=== PATIENT | female | born 1985 | race Two or more races ===

== ENCOUNTER 2017-01-04 20:50 | Observation (INO) | payer MEDICAID ==
[~2017-01-04] VITALS: Ht 157.5 cm; Wt 49.9 kg
[~2017-01-04 20:50] MED LIST: NORPTMEDS CO
[2017-01-04 21:39] LABS: Urine Bilirubin Negative (Negative); Urine Blood Negative /uL (Negative); Urine Color Colorless (Yellow); Urine Glucose Normal (Normal); Urine Ketone Negative (Negative); Urine Nitrite Negative (Negative); Urine RBC <1 /hpf (0 - 4); Urine Urobilinogen Normal (Negative); Urine pH 5.5 (5.0-8.0)
[2017-01-04 21:52] LABS: Basophils # (auto) 0 uL; Basophils % (auto) 0.6 % (0.0-2.0); Eosinophils # (auto) 0.1 uL; Hematocrit 37.9 % (36.0-46.0); Lymphocytes % (auto) 34.1 % (10.0-50.0); Mean Corpuscular Hemoglobin 31.4 pg (28.0-32.0); Mean Corpuscular Hgb Conc. 34.3 g/dL (32.0-36.0); Mean Corpuscular Volume 91.4 fL (80.0-100.0); Mean Platelet Volume 9.2 fL (7.4-10.4); Monocytes # (auto) 0.4 uL; Monocytes % (auto) 6.2 % (0.0-12.0); Neutrophils # (auto) 3.4 uL; Neutrophils % (auto) 58.1 % (37.0-80.0); Platelet Count (auto) 179 10^3/uL (140-450); White Blood Cell 5.8 10^3/uL (4.4-10.8)
[2017-01-04 21:55] LABS: Acetaminophen < 2.0 ug/mL (10-30); BUN/Creatinine Ratio 13.8; Bilirubin, Total 0.4 mg/dL (0.2-1.0); Calcium 8.1 mg/dL (8.5-10.1); Magnesium 2.4 mg/dL (1.6-2.6); Salicylate < 1.7 mg/dL (2.8-20.0)
[2017-01-04] MEDS ORDERED: SODIUM CHLORIDE 0.9% 1,000 ML IV ONE (22:00)
[2017-01-04 22:01] LABS: Potassium 2.8 mmol/L (3.5-5.1)
[2017-01-04] MEDS: POTASSIUM CHL 20 Meq TABLET PO ONE ×2 (22:52→22:57)
[2017-01-04] MEDS ORDERED: POTASSIUM CHL 20MEQ/100ML 200 ML IV ONE (23:12)
[2017-01-04] MEDS: POTASSIUM CHL 20MEQ/100ML 100 ML IV SCH (23:26)
[2017-01-05] MEDS: POTASSIUM CHL 20MEQ/100ML 100 ML IV SCH (01:29)
[2017-01-05 08:20] VITALS: BP 125/67
== END 2017-01-05 09:17 | disposition home or self-care (01) | DRG 812 ==
LOC: ER 20:52 → OVERFLOW 20:53 → ER 01-05 09:17
PROVIDERS: ADMIT Emergency Medicine; ATTEND Emergency Medicine
DX: T42.4X2A Poisoning by benzodiazepines, intentional self-harm, initial encounter (principal); F32.9 Major depressive disorder, single episode, unspecified; Y92.89 Other specified places as the place of occurrence of the external cause; F41.9 Anxiety disorder, unspecified; Z82.49 Family history of ischemic heart disease and other diseases of the circulatory system
CPT/HCPCS: 36415; 80053; 80307; 80320; 80329; 81001; 83735; 84702; 85025; 93005; 96360; 96361; 99285; G0378; J3480; J7030

== ENCOUNTER 2017-05-17 20:35 | Emergency (ER) | payer MEDICAID ==
[~2017-05-17] VITALS: Ht 154.9 cm; Wt 53.1 kg
[2017-05-17 22:00] LABS: Basophils # (auto) 0.1 uL; Basophils % (auto) 0.7 % (0.0-2.0); Eosinophils # (auto) 0.1 uL; Eosinophils % (auto) 0.8 % (0.0-7.0); Hematocrit 37.5 % (36.0-46.0); Lymphocytes # (auto) 2.2 uL; Lymphocytes % (auto) 23.1 % (10.0-50.0); Mean Corpuscular Hemoglobin 32.3 pg (28.0-32.0); Mean Corpuscular Hgb Conc. 34.7 g/dL (32.0-36.0); Mean Corpuscular Volume 93.1 fL (80.0-100.0); Mean Platelet Volume 8.8 fL (6.9-10.8); Monocytes # (auto) 0.4 uL; Monocytes % (auto) 3.8 % (0.0-12.0); Neutrophils # (auto) 6.7 uL; Neutrophils % (auto) 71.6 % (37.0-80.0); Nucleated Red Blood Cells % 0.1 %; Platelet Count (auto) 199 10^3/uL (140-450); Red Cell Distribution Width 12.3 % (11.8-14.3); White Blood Cell 9.4 10^3/uL (4.4-10.8)
[2017-05-17 22:14] LABS: Albumin 3.9 g/dL (3.4-5.0); BUN/Creatinine Ratio 12.5; Calcium 7.9 mg/dL (8.5-10.1); Potassium 3.3 mmol/L (3.5-5.1)
[2017-05-17 22:17] LABS: Bilirubin, Total 0.5 mg/dL (0.2-1.0); Total Protein 6.9 g/dL (6.4-8.2)
[2017-05-18 00:13] LABS: Urine Bilirubin Negative (Negative); Urine Blood 1+ /uL (Negative); Urine Color Yellow (Yellow); Urine Glucose Normal (Normal); Urine Ketone Negative (Negative); Urine Nitrite Negative (Negative); Urine RBC <1 /hpf (0 - 4); Urine Squamous Epithelial Cell FEW /hpf (<5); Urine Urobilinogen Normal (Negative)
[2017-05-18] MEDS ORDERED: POTASSIUM CHL 20 Meq TABLET PO ONE (02:15)
[2017-05-18 02:34] VITALS: BP 105/58
== END 2017-05-18 02:39 | disposition home or self-care (01) ==
LOC: EDBD 20:35 → ER 20:44
DX: G40.909 Epilepsy, unspecified, not intractable, without status epilepticus (principal); E87.6 Hypokalemia; E83.51 Hypocalcemia; R42 Dizziness and giddiness
CPT/HCPCS: 36415; 70450; 80053; 80307; 81001; 81025; 82962; 84702; 85025; 93005